=== PATIENT | female | born 2000 | race Caucasian/White ===

== ENCOUNTER 2024-04-08 17:45 | Emergency (ER) | payer SELFPAY ==
--- NOTE | 2024-04-08 18:14 | ED.PDOC.TRB ---
ED Provider Triage
-
Patient seen by provider in Triage?: Seen in Triage
*Seen in triage to expedite assessment*
23 yo female presents with dysuria, back pain and malaise x 1 week, R flank pain and urinary urgency beginning last night. Feels like she can't urinate. LMP began 03/15.
Urine dip done in PCP office and sent for urine culture, prescribed cephalexin and phenazopyridine, did not start yet. Dip reportedly positive for leuks and blood.
Visibly uncomfortable. VS unremarkable. Reporting R flank pain. Will obtain labs/HCG and send for CT to r/o stone.
[2024-04-08 18:16] VITALS: BP 126/84
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
[2024-04-08] MEDS: MOTRIN 600 MG PO (19:08)
== END 2024-04-08 20:07 | disposition home or self-care (01) ==
LOC: EMR 17:45
PROVIDERS: EMERGENCY PHYSICIAN Emergency Medicine; FAMILY PHYSICIAN Family Medicine
DX: S06.0XAA Concussion with loss of consciousness status unknown, initial encounter (principal); F41.0 Panic disorder [episodic paroxysmal anxiety]; V43.52XA Car driver injured in collision with other type car in traffic accident, initial encounter; Y92.410 Unspecified street and highway as the place of occurrence of the external cause; F42.9 Obsessive-compulsive disorder, unspecified
CPT/HCPCS: 99284; 70450

== ENCOUNTER 2024-04-12 11:33 | Emergency (ER) | payer BC, SELFPAY ==
[2024-04-12 11:39] VITALS: BP 131/95
[2024-04-12 12:38] LABS: Urine Albumin Negative (Neg - Trace); Urine Bilirubin Negative (Negative); Urine Character Clear (Clear); Urine Color Yellow; Urine Glucose Negative (Negative); Urine Ketone Negative (Negative); Urine Leukocyte Trace (Negative); Urine Nitrite Negative (Negative); Urine Occult Blood Negative (Negative); Urine Specific Gravity 1.005 (<1.030); Urine Urobilinogen Negative (Neg - 1+)
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
[2024-04-12 12:51] LABS: HCG, Urine Qualitative Screen Negative
[2024-04-12 12:54] LABS: Urine Squamous Cell 26-30 /LPF (Few)
[2024-04-12 12:56] LABS: Urine Red Blood Cell 0-2 /HPF (0-2)
== END 2024-04-12 14:29 | disposition home or self-care (01) ==
LOC: EMR 11:33
PROVIDERS: Emergency Medicine; EMERGENCY PHYSICIAN Emergency Medicine; FAMILY PHYSICIAN Family Medicine
DX: R33.9 Retention of urine, unspecified (principal); R10.2 Pelvic and perineal pain; S70.01XA Contusion of right hip, initial encounter; M54.9 Dorsalgia, unspecified; V43.92XA Unspecified car occupant injured in collision with other type car in traffic accident, initial encounter; Y92.410 Unspecified street and highway as the place of occurrence of the external cause; R03.0 Elevated blood-pressure reading, without diagnosis of hypertension; F41.9 Anxiety disorder, unspecified; K58.9 Irritable bowel syndrome, unspecified; N83.209 Unspecified ovarian cyst, unspecified side; F41.0 Panic disorder [episodic paroxysmal anxiety]; F90.9 Attention-deficit hyperactivity disorder, unspecified type; F42.9 Obsessive-compulsive disorder, unspecified; G43.909 Migraine, unspecified, not intractable, without status migrainosus; Z79.899 Other long term (current) drug therapy
CPT/HCPCS: 99283; 51798; 81003; 81015; 81025

== ENCOUNTER → 2024-06-24 06:13 | Day surgery (SDC) | payer BC, SELFPAY | LOC: GI 06:13 | PROVIDERS: ATTENDING PHYSICIAN Internal Medicine; FAMILY PHYSICIAN Family Medicine | DX: R10.30 Lower abdominal pain, unspecified (principal); R19.4 Change in bowel habit | CPT/HCPCS: 45380; 88305; 88341; 88342 ==

== ENCOUNTER → 2024-08-19 08:56 | Outpatient (REF) | payer BC, SELFPAY | LOC: HWRAD 08:56 | PROVIDERS: ATTENDING PHYSICIAN Obstetrics & Gynecology; FAMILY PHYSICIAN Family Medicine | DX: R10.2 Pelvic and perineal pain (principal); N80.9 Endometriosis, unspecified | CPT/HCPCS: 76830; 76856 ==

== ENCOUNTER 2024-09-28 06:11 | Day surgery (SDC) | payer BC, SELFPAY ==
[2024-09-24 10:39] VITALS: BMI 21.9
[2024-09-24 10:44] LABS: Hematocrit 35.6 % (37.0-47.0); Hemoglobin 12.1 g/dL (12.0-16.0); Mean Corpuscular Hgb 31.6 pg (27.0-31.0); Mean Platelet Volume 10.1 fL (7.4-10.4); Platelet Count 317 10^3/uL (130-400); Red Blood Cell Count 3.83 10^6/uL (4.20-5.40); Red Cell Dist. Width 11.9 % (11.5-14.5); White Blood Cell Count 5.2 10^3/uL (4.8-10.8)
[2024-09-24 11:19] LABS: Blood Urea Nitrogen 14 mg/dl (7-17); Calcium 9.3 mg/dl (8.4-10.2); Carbon Dioxide 25 mmol/L (22-30); Chloride 102 mmol/L (98-107); Estimated Creatinine Clearance 114 ml/min; Glucose 75 mg/dl (70-99); Potassium 4.1 mmol/L (3.5-5.1); Sodium 141 mmol/L (135-145); eGFR > 60.00
[2024-09-28] VITALS (9 sets, daily range): BP systolic 107–123; BP diastolic 62–84; BMI 21.9
[2024-09-28] MEDS: Pyridium 200 MG PO (06:35)
[2024-09-28] MEDS: EMEND 40 MG PO (07:01)
[2024-09-28] MEDS: DILAUDID 0.5 MG IV (09:21)
[2024-09-28] MEDS: DILAUDID 0.25 MG IV ×2 (09:39→10:07)
[2024-09-28] MEDS: MOTRIN 600 MG PO (10:38)
== END 2024-09-28 11:09 | disposition home or self-care (01) ==
LOC: SDS 06:11
PROVIDERS: ATTENDING PHYSICIAN Obstetrics & Gynecology; FAMILY PHYSICIAN Family Medicine
DX: N80.3C2 Endometriosis of the left uterosacral ligament, unspecified depth (principal); N80.351 Endometriosis of the right pelvic sidewall, unspecified depth; N83.12 Corpus luteum cyst of left ovary; R10.2 Pelvic and perineal pain; G89.29 Other chronic pain
CPT/HCPCS: 58662; 88304; 88305; 36415; 80048; 85027

== ENCOUNTER 2024-10-01 17:08 | Emergency (ER) | payer BC, SELFPAY ==
[2024-10-01 17:11] VITALS: BP 130/91
[2024-10-01 17:24] LABS: % Basophils 0.4 % (0-2); % Eosinophils 1.1 % (0-6); % Immature Granulocytes 0.3 % (0-0.5); % Lymphocytes 36.3 % (20.5-51.1); % Monocytes 4.7 % (1.7-9.3); % Neutrophils 57.2 % (42.2-75.2); Absolute Eosinophils 0.1 10^3/uL (0-0.7); Absolute Lymphocytes 2.8 10^3/uL (1.2-3.4); Absolute Monocytes 0.4 10^3/uL (0.1-0.6); Absolute Neutrophils 4.4 10^3/uL (1.4-6.5); Hematocrit 37.8 % (37.0-47.0); Hemoglobin 13.2 g/dL (12.0-16.0); Mean Corp Hgb Conc. 34.9 g/dL (33.0-37.0); Mean Corpuscular Hgb 31.1 pg (27.0-31.0); Mean Corpuscular Volume 89.2 fL (81.0-99.0); Mean Platelet Volume 9.2 fL (7.4-10.4); Nucleated Red Blood Cells % 0 %; Platelet Count 313 10^3/uL (130-400); Red Blood Cell Count 4.24 10^6/uL (4.20-5.40); Red Cell Dist. Width 11.8 % (11.5-14.5); White Blood Cell Count 7.6 10^3/uL (4.8-10.8)
[2024-10-01 17:34] LABS: HCG, Serum Qualitative Screen Negative
[2024-10-01 17:51] LABS: ALT (SGPT) 14 U/L (0-35); AST (SGOT) 20 U/L (14-36); Albumin 4.7 g/dl (3.5-5.0); Alkaline Phosphatase 52 U/L (38-126); Blood Urea Nitrogen 9 mg/dl (7-17); Calcium 9.4 mg/dl (8.4-10.2); Carbon Dioxide 28 mmol/L (22-30); Chloride 102 mmol/L (98-107); Glucose 99 mg/dl (70-99); Potassium 3.7 mmol/L (3.5-5.1); Sodium 143 mmol/L (135-145); Total Bilirubin 0.3 mg/dl (0.2-1.3); Total Protein 7.4 g/dl (6.3-8.2); eGFR > 60.00
--- NOTE | 2024-10-01 20:21 | ED.GENMED ---
Addendum entered and electronically signed by Arina Lin MD, Resident 10/02/24 17:13:
HPI for patient that was not entered (was evaluated on 10/01).
This is a 23 year old female patient with PMH of recent laparoscopy for endometriosis, ADHD, anxiety/depression who presents to the ED with concerns of generalized abdominal pain. She recently underwent laparatomy for endometriosis on 09/28 by
. She states that she started to have abdominal pain after her surgery that was continuous crampy/stabbing type of pain that is generalized but mostly focused in lower abdomen that is also associated with nausea. She has passed flatus
everyday since her surgery but had not passed any bowel movements. She tried taking Milk of Mag but that had not provided her with any relief. She denies any fever, vomiting, or shortness of breath. When the stomach pain had increased, she had
gotten in contact with her surgeon who advised her to come to the ER.
Original Note:
History of Present Illness
<Arina Lin MD, Resident - Last Filed: 10/01/24 22:44>
General
Chief Complaint: Post Operative Problem(s)
Source: patient and family
Time Seen by Provider: 10/01/24 19:45
History of Present Illness
History of Present Illness:
This is a 23 year old female patient with PMH of recent laparascopy for endometriosis, ADHD, anxiety/depression who pr
<Josh Irby DO - Last Filed: 10/02/24 00:45>
History of Present Illness
History of Present Illness:
This is a 23 year old female patient with PMH of recent laparascopy for endometriosis, ADHD, anxiety/depression who pr
Dr. Irby:
This is 23-year-old female presents with generalized abdominal discomfort. She states mostly in her lower abdomen. She recently had laparoscopy for endometriosis and since has not been able to have a bowel movement. Patient states that her
discomfort had been what she expected but today it seemed to get worse. She has been trying stool softeners at home. She called her surgeon who advised her to come for evaluation. To my evaluation she states she feels better and feels like she
just has to have a bowel movement. No vomiting. No melena or hematochezia. No fevers. No shortness of breath. No injury. Wounds have been intact. She does have history of the patient in the past.
Past History
<Arina Lin MD, Resident - Last Filed: 10/01/24 22:44>
Social History
Tobacco: Non-smoker
Alcohol: None
Drug: None
<Josh Irby, - Last Filed: 10/02/24 00:45>
Past History
ED Past Medical History: Other (Endometriosis, C. difficile, irritable bowel syndrome, ovarian cysts, OCD, anxiety, depression)
Phy Exam
<Arina Lin MD, Resident - Last Filed: 10/01/24 22:44>
General Physical Exam
General Presentation: mild distress
Cardiovascular Exam
Cardiovascular Exam: regular rate/rhythm and no murmur
Heart Sounds: normal
Pulmonary Exam
Pulmonary Exam: lungs clear, no respiratory distress and no crackles
Gastrointestinal Exam
Gastrointestinal Exam: soft, non distended, surgical scar (laparatomy incisions present without bleeding or discharge) and tender (lower abdominal tenderness)
Neurological Exam
Neurological Exam: oriented x3
Musculoskeletal Exam
Musculoskeletal Exam: no edema
Skin Exam
Skin Exam: warm/dry
Psychiatric Exam
Psychiatric Exam: normal mood/affect
<Josh Irby, - Last Filed: 10/02/24 00:45>
Physical Exam
Physical Exam:
CONSTITUTIONAL Patient alert and oriented to person, place and time. Well-appearing. Vital signs reviewed.
HEAD atraumatic, normocephalic.
EYES eyelids normal to inspection, Extraocular muscles intact, Conjunctiva normal, Sclera normal.
NECK normal range of motion, Trachea midline, no jugular venous distention.
RESPIRATORY CHEST No respiratory distress noted, Chest expansion equal
ABDOMEN abdomen nontender, Bowel sounds normal. No distention. Incisions and wounds are intact and appear well. No surrounding redness.
BACK normal inspection, no obvious deformities
UPPER EXTREMITY range of motion normal, Motor strength normal, no cyanosis, no edema.
LOWER EXTREMITY range of motion normal, Motor strength normal, no cyanosis, no edema.
NEURO Speech normal, No focal motor deficits, Mikal coma scale 15, Memory normal, Cranial Nerves intact to screening exam.
SKIN skin warm, dry, and normal in color.
Course
<Arina Cindy Lin MD, Resident - Last Filed: 10/01/24 22:44>
Orders/Labs/Results
Orders:
Orders
10/01/24 17:13
Test Result ONCE
10/01/24 17:18
Complete Blood Count/With Diff Urgent
Comprehensive Metabolic Panel Urgent
HCG, Serum Qualitative Screen Urgent
10/01/24 20:33
Ondansetron Injectable [Zofran] 4 mg IV NOW STA
10/01/24 20:34
Ketorolac [Toradol] 15 mg IV NOW STA
10/01/24 20:47
Iohexol [Omnipaque] See Protocol PO NOW STA
10/01/24 21:09
Abdomen Xray - 1 View [CR Abdomen - 1 View] Urgent
Comment:
Reason For Exam: nausea, abd pain, recent sugery
10/01/24 22:24
Magnesium Citrate [Citroma] 300 ml PO ONCE ONE
Abnormal Lab Results
10/01/24
17:18
MCH 31.1 H pg
(27.0-31.0)
10/01/24 17:18
10/01/24 17:18
Vital Signs
Initial and Last Documented VS:
Initial Vital Signs
Temp Pulse Resp BP Pulse Ox
98.5 F 110 16 130/91 99
10/01/24 17:11 10/01/24 17:11 10/01/24 17:11 10/01/24 17:11 10/01/24 17:11
Last Documented Vital Signs
Temp Pulse Resp BP Pulse Ox
98.5 F 86 16 106/81 98
10/01/24 17:11 10/01/24 22:38 10/01/24 22:38 10/01/24 22:38 10/01/24 22:38
<Josh Irby, DO - Last Filed: 10/02/24 00:45>
Orders/Labs/Results
Orders:
Orders
10/01/24 17:13
Test Result ONCE
10/01/24 17:18
Complete Blood Count/With Diff Urgent
Comprehensive Metabolic Panel Urgent
HCG, Serum Qualitative Screen Urgent
10/01/24 20:33
Ondansetron Injectable [Zofran] 4 mg IV NOW STA
10/01/24 20:34
Ketorolac [Toradol] 15 mg IV NOW STA
10/01/24 20:47
Iohexol [Omnipaque] See Protocol PO NOW STA
10/01/24 21:09
Abdomen Xray - 1 View [CR Abdomen - 1 View] Urgent
Comment:
Reason For Exam: nausea, abd pain, recent sugery
10/01/24 22:24
Magnesium Citrate [Citroma] 300 ml PO ONCE ONE
Abnormal Lab Results
10/01/24
17:18
MCH 31.1 H pg
(27.0-31.0)
10/01/24 17:18
10/01/24 17:18
Vital Signs
Initial and Last Documented VS:
Initial Vital Signs
Temp Pulse Resp BP Pulse Ox
98.5 F 110 16 130/91 99
10/01/24 17:11 10/01/24 17:11 10/01/24 17:11 10/01/24 17:11 10/01/24 17:11
Last Documented Vital Signs
Temp Pulse Resp BP Pulse Ox
98.5 F 86 16 106/81 98
10/01/24 17:11 10/01/24 22:38 10/01/24 22:38 10/01/24 22:38 10/01/24 22:38
<Arina Lin MD, Resident - Last Filed: 10/01/24 22:44>
MDM/Problems Addressed
Differential Diagnosis Includes:
Small bowel obstruction, bowel perforation, Bowel bleed, constipation
MDM/Problems Addressed:
CBC/CMP without significant findings. Due to absense of red flag symptoms such as absence of passing flatus, fever, chills, abdominal distenson, or low HB, abdominal xray was appropriate after discussion with patient. Abdominal xray showed small
volume widespread colonic stool. She was given magnesium citrate and toradol for pain. Patient is stable and will be discharged with instructions to take Miralax and follow up with Dr. Rich.
<Josh Irby DO - Last Filed: 10/02/24 00:45>
MDM/Problems Addressed
Differential Diagnosis Includes:
Small bowel obstruction, bowel perforation, Bowel bleed, constipation, intra-abdominal abscess, intra-abdominal hemorrhage
<Arina Lin MD, Resident - Last Filed: 10/01/24 22:44>
*Critical Care Note
Total Time (30-74mins, 75-104mins- exclusive of procedures): Not Applicable
<Josh Irby DO - Last Filed: 10/02/24 00:45>
*Radiology
Radiology exam reviewed: preliminary read by ED provider (No obstruction)
*Pulse Oximetry
Patient hypoxic: no
Data Reviewed
Source: patient and family
Further Testing Considered But Not Given:
Consider CT scan. However after shared decision making, decision to forego imaging. See below
<Josh Irby DO - Last Filed: 10/02/24 00:45>
Patient Management
Escalation/DeEscalation of care consider admission/obs:
Lengthy discussion with the patient. Her abdominal exam is relatively benign. She does have a mild diffuse tenderness but wounds are intact. She has no fever. She appears well. Her white count hemoglobin are normal. I do suspect she is
constipated. At this time we decided to forego CT imaging and try laxatives. Patient is okay with this. She will return however if any symptoms worsen or progressive. She also will return for any progressive symptoms like fever or vomiting. She
will follow-up with her surgeon.
ED Attending Note
<Arina Lin MD, Resident - Last Filed: 10/01/24 22:44>
-
Portions of this chart may have been created with voice recognition software.� Occasional wrong word or��sound alike� substitutions may have occurred due to the inherent limitations of voice recognition software.
<Josh Irby DO - Last Filed: 10/02/24 00:45>
ED Attending Note
Patient seen and examined by attending physician: Yes
I performed a history and physical exam of patient and discussed management with resident, I reviewed resident's note and agree with documented findings and plan of care.: Yes
Discharge Plan
Departure
Patient Disposition: Home (Routine Discharge)
Date of Disposition: 10/01/24
Time of Disposition: 22:19
Patient with high blood pressure during this ER visit?: No
Discharge Problem:
Constipation
Prescriptions:
No Action
multivitamin Tablet
1 tab PO DAILY
buspirone [BuSpar] 30 mg Tablet
30 mg PO DAILY
atomoxetine [Strattera] 60 mg Capsule
60 mg PO DAILY
lamotrigine 50 mg Tablet Extended Release 24hr
50 mg PO DAILY
vilazodone 20 mg Tablet
20 mg PO DAILY
mecobalamin (vitamin B12) [B12 Active] 1,000 mcg Tablet,Chewable
1,000 mcg PO DAILY
clonidine HCl 0.2 mg Tablet
0.2 mg PO PRN PRN (Reason: anxiety)
Referrals:
Leatha Israel CNM [Family Provider] -
Activity Restrictions/Additional Instructions:
If worsening symptoms such as fever, chills, worsening/persistent abdominal pain please return to the ER. Take Miralax (over the counter) twice a day for 5 days for constipation. Follow up with at your scheduled visit in 2 weeks. If
symptoms persist, please call 's office earlier.
Interventions
Interventions:
*Risk Screen - Suicide Last Done: 10/01/24 17:13
*Neglect/Abuse Screening Last Done: 10/01/24 17:13
*Nursing Disposition Last Done: 10/01/24 22:39
Discharge Date and Time
Discharge Date/Time: 10/01/24 22:48
Print Language: MONEGASQUE
[2024-10-01] MEDS: ZOFRAN 4 MG IV (20:40)
[2024-10-01] MEDS: TORADOL 15 MG IV (20:40)
[2024-10-01] MEDS: OMNIPAQUE 50 ML PO (21:00)
[2024-10-01] MEDS: CITROMA 300 ML PO (22:35)
[2024-10-01 22:38] VITALS: BP 106/81
== END 2024-10-01 22:48 | disposition home or self-care (01) ==
LOC: EMR 17:08
PROVIDERS: Student in an Organized Health Care Education/Training Program; EMERGENCY PHYSICIAN Emergency Medicine; FAMILY PHYSICIAN Advanced Practice Midwife
DX: K59.00 Constipation, unspecified (principal); K58.9 Irritable bowel syndrome, unspecified; Z87.42 Personal history of other diseases of the female genital tract; Z98.890 Other specified postprocedural states
CPT/HCPCS: 99284; 96374; 96375; 74018; 80053; 84703; 85025

== ENCOUNTER 2024-12-13 14:14 | Emergency (ER) | payer BC, SELFPAY ==
[2024-12-13 14:17] VITALS: BP 140/86
[2024-12-13 14:44] LABS: % Basophils 0.7 % (0-2); % Eosinophils 0.2 % (0-6); % Immature Granulocytes 0.4 % (0-0.5); % Lymphocytes 28.9 % (20.5-51.1); % Monocytes 6.7 % (1.7-9.3); % Neutrophils 63.1 % (42.2-75.2); Absolute Basophils 0.1 10^3/uL (0-0.2); Absolute Lymphocytes 2.6 10^3/uL (1.2-3.4); Absolute Monocytes 0.6 10^3/uL (0.1-0.6); Absolute Neutrophils 5.8 10^3/uL (1.4-6.5); Hematocrit 37.5 % (37.0-47.0); Hemoglobin 12.9 g/dL (12.0-16.0); Mean Corp Hgb Conc. 34.4 g/dL (33.0-37.0); Mean Corpuscular Volume 90.1 fL (81.0-99.0); Mean Platelet Volume 9.4 fL (7.4-10.4); Nucleated Red Blood Cells % 0 %; Platelet Count 327 10^3/uL (130-400); Red Blood Cell Count 4.16 10^6/uL (4.20-5.40); Red Cell Dist. Width 11.7 % (11.5-14.5); White Blood Cell Count 9.1 10^3/uL (4.8-10.8)
[2024-12-13 14:45] LABS: Urine Albumin Negative (Neg - Trace); Urine Bilirubin Negative (Negative); Urine Character Clear (Clear); Urine Glucose Negative (Negative); Urine Ketone Negative (Negative); Urine Leukocyte Negative (Negative); Urine Nitrite Negative (Negative); Urine Occult Blood Negative (Negative); Urine Specific Gravity 1.005 (<1.030); Urine Urobilinogen Negative (Neg - 1+)
[2024-12-13 14:46] LABS: Urine Color Straw
[2024-12-13 15:12] LABS: HCG, Serum Qualitative Screen Negative
[2024-12-13 15:16] LABS: ALT (SGPT) 10 U/L (0-35); AST (SGOT) 21 U/L (14-36); Albumin 4.9 g/dl (3.5-5.0); Alkaline Phosphatase 92 U/L (38-126); Blood Urea Nitrogen 9 mg/dl (7-17); Calcium 9.5 mg/dl (8.4-10.2); Carbon Dioxide 21 mmol/L (22-30); Chloride 103 mmol/L (98-107); Glucose 85 mg/dl (70-99); Lipase 102 U/L (23-300); Potassium 3.8 mmol/L (3.5-5.1); Sodium 136 mmol/L (135-145); Total Bilirubin 0.7 mg/dl (0.2-1.3); Total Protein 7.2 g/dl (6.3-8.2); eGFR > 60.00
--- NOTE | 2024-12-13 16:23 | ED.GENMED ---
History of Present Illness
General
Chief Complaint: Abdominal Pain
Source: patient
Exam Limitations: none
Time Seen by Provider: 12/13/24 15:32
Nursing documentation reviewed up to this point in time: agreed with
History of Present Illness
History of Present Illness:
Patient recently diagnosed with endometriosis, status post progestin based IUD placement 2 weeks ago, presents to ED secondary to sudden onset of worsening lower abdominal pain with loss of sensation, and approximate 2 hours prior to arrival.
Denies trauma. Denies vaginal bleeding. Patient states that after insertion of IUD, patient has had very mild lower abdominal cramping sensation. Denies fever or chills. Denies previous history of similar symptoms. However, intensity of pain
does remind the patient of when she had ruptured ovarian cyst.
Past History
Past History
ED Past Medical History: Other (Endometriosis, C. difficile, irritable bowel syndrome, ovarian cysts, OCD, anxiety, depression)
Social History
Tobacco: Non-smoker
Alcohol: None
Drug: None
Review of Systems
Review of Systems
Allergies reviewed?: Yes
All Other Systems: ROS reviewed and negative except as documented in HPI and ROS
Constitutional: Reports no symptoms
Respiratory: Reports no symptoms
Cardiac: Reports no symptoms
ABD/GI: Reports abdominal pain and nausea; Denies vomiting
: Reports no symptoms; Denies bleeding
Musculoskeletal: Reports no symptoms
Skin: Reports no symptoms
Neurological: Reports no symptoms
Phy Exam
Physical Exam
Physical Exam:
Physical Exam
General: mild painful distress, not acutely ill. afebrile
Head: nc/at. eomi
Neck: supple. normal range of motion
Abdomen: normal bowel sounds. not tender.
Pelvic: BEBO Nguyen, at bedside: minimal brown discharge noted. no adnexal tenderness to palpation.
Neuro: alert and oriented x 3. no focal neurological deficits
Skin: no rash
Psychiatric: well kept. interactive and cooperative
Extremities: no edema. no calf tenderness.
Course
Orders/Labs/Results
Orders:
Orders
12/13/24 14:22
Test Result ONCE
12/13/24 14:30
Complete Blood Count/With Diff Urgent
Comprehensive Metabolic Panel Urgent
HCG, Serum Qualitative Screen Urgent
Lipase Urgent
12/13/24 14:34
Urinalysis Reflex To Culture Urgent
Date Specimen was Collected: 12/13/24
Time Specimen was Collected: 14:22
12/13/24 15:50
0.9% Sodium Chloride 500 ml [Nss] 500 ml IV BOLUS
Ketorolac [Toradol] 15 mg IV NOW STA
Ondansetron Injectable [Zofran] 4 mg IV NOW STA
US Pelvis W Transvag Combined Urgent
Comment:
Reason For Exam: pelvic pain w hx endometriosis
Abnormal Lab Results
12/13/24
14:30
RBC 4.16 L 10^6/uL
(4.20-5.40)
Carbon Dioxide 21 L mmol/L
(22-30)
Creatinine 0.5 L mg/dL
(0.6-1.0)
12/13/24 14:30
12/13/24 14:30
Vital Signs
Initial and Last Documented VS:
Initial Vital Signs
Temp Pulse Resp BP Pulse Ox
98.6 F 120 16 140/86 100
12/13/24 14:17 12/13/24 14:17 12/13/24 14:17 12/13/24 14:17 12/13/24 14:17
Last Documented Vital Signs
Temp Pulse Resp BP Pulse Ox
98.6 F 109 16 140/86 97
12/13/24 14:17 12/13/24 18:40 12/13/24 18:40 12/13/24 14:17 12/13/24 18:40
MDM/Problems Addressed
MDM/Problems Addressed:
Patient with an unremarkable workup in ED, including blood work and pelvic ultrasound, along with unremarkable pelvic exam.
Discussed with on-call PROCESSING ASSOCIATE physician, , who agrees with plan to discharge patient home for an urgent outpatient follow-up in the office. Patient and family agree with treatment plan. Advised NSAID as an outpatient, as needed, along with
recommendation to consider return to ED with fever/worsening pain/vomiting
*Critical Care Note
Total Time (30-74mins, 75-104mins- exclusive of procedures): Not Applicable
ED Attending Note
-
Portions of this chart may have been created with voice recognition software.� Occasional wrong word or��sound alike� substitutions may have occurred due to the inherent limitations of voice recognition software.
Discharge Plan
Departure
Patient Disposition: Home (Routine Discharge)
Date of Disposition: 12/13/24
Time of Disposition: 19:41
Patient with high blood pressure during this ER visit?: No
Discharge Problem:
Pelvic pain
Instructions: Pelvic Pain ED
Prescriptions:
No Action
multivitamin Tablet
1 tab PO DAILY
buspirone [BuSpar] 30 mg Tablet
30 mg PO DAILY
atomoxetine [Strattera] 60 mg Capsule
60 mg PO DAILY
lamotrigine 50 mg Tablet Extended Release 24hr
50 mg PO DAILY
vilazodone 20 mg Tablet
20 mg PO DAILY
mecobalamin (vitamin B12) [B12 Active] 1,000 mcg Tablet,Chewable
1,000 mcg PO DAILY
clonidine HCl 0.2 mg Tablet
0.2 mg PO PRN PRN (Reason: anxiety)
Referrals:
Corinne Padgett DO [Active] -
Macie Mcmahan DO [Family Provider] -
Activity Restrictions/Additional Instructions:
As discussed, please follow-up with your PROCESSING ASSOCIATE physician for further evaluation and treatment. Please return to ED with worsening symptoms, i.e. fever/worsening pain/vomiting.
Interventions
Interventions:
*Risk Screen - Suicide Last Done: 12/13/24 14:17
*General Assessment Last Done: 12/13/24 17:20
*Neglect/Abuse Screening Last Done: 12/13/24 14:17
ED- Fall Risk Assessment Last Done: 12/13/24 17:20
*ED COVID-19 Vaccine History Last Done: 12/13/24 17:20
*Nursing Disposition Last Done: 12/13/24 20:04
ZS-Rndzmi-Oqusctjvxg Assessment Last Done: 12/13/24 17:20
Discharge Date and Time
Discharge Date/Time: 12/13/24 20:05
Print Language: FAROESE
[2024-12-13] MEDS: TORADOL 15 MG IV (17:10)
[2024-12-13] MEDS: ZOFRAN 4 MG IV (17:10)
[2024-12-13] MEDS: NSS 500 IV (17:10)
== END 2024-12-13 20:05 | disposition home or self-care (01) ==
LOC: EMR 14:14
PROVIDERS: Student in an Organized Health Care Education/Training Program; EMERGENCY PHYSICIAN Emergency Medicine; FAMILY PHYSICIAN Family Medicine
DX: R10.2 Pelvic and perineal pain (principal); K58.9 Irritable bowel syndrome, unspecified; Z97.5 Presence of (intrauterine) contraceptive device; Z87.42 Personal history of other diseases of the female genital tract
CPT/HCPCS: 96374; 96375; 96361; 99284; 76830; 76856; 80053; 81003; 83690; 84703; 85025

== ENCOUNTER 2024-12-15 13:19 | Emergency (ER) | payer BC, SELFPAY ==
[2024-12-15] VITALS (7 sets, daily range): BP systolic 117–133; BP diastolic 76–94; BMI 21.9
[2024-12-15 13:42] LABS: % Basophils 0.5 % (0-2); % Eosinophils 0.2 % (0-6); % Immature Granulocytes 0.4 % (0-0.5); % Lymphocytes 18.8 % (20.5-51.1); % Monocytes 5.6 % (1.7-9.3); % Neutrophils 74.5 % (42.2-75.2); Absolute Basophils 0.1 10^3/uL (0-0.2); Absolute Lymphocytes 1.7 10^3/uL (1.2-3.4); Absolute Monocytes 0.5 10^3/uL (0.1-0.6); Absolute Neutrophils 6.8 10^3/uL (1.4-6.5); Hematocrit 38.7 % (37.0-47.0); Hemoglobin 13.1 g/dL (12.0-16.0); Mean Corp Hgb Conc. 33.9 g/dL (33.0-37.0); Mean Corpuscular Hgb 30.5 pg (27.0-31.0); Mean Corpuscular Volume 90.2 fL (81.0-99.0); Nucleated Red Blood Cells % 0 %; Platelet Count 301 10^3/uL (130-400); Red Blood Cell Count 4.29 10^6/uL (4.20-5.40); Red Cell Dist. Width 11.8 % (11.5-14.5); White Blood Cell Count 9.2 10^3/uL (4.8-10.8)
[2024-12-15 13:43] LABS: Urine Albumin Negative (Neg - Trace); Urine Bilirubin Negative (Negative); Urine Character Clear (Clear); Urine Color Yellow; Urine Glucose Negative (Negative); Urine Ketone Negative (Negative); Urine Leukocyte Negative (Negative); Urine Nitrite Negative (Negative); Urine Occult Blood Negative (Negative); Urine Urobilinogen Negative (Neg - 1+)
[2024-12-15 13:52] LABS: HCG, Serum Qualitative Screen Negative
[2024-12-15 13:54] LABS: ALT (SGPT) 11 U/L (0-35); AST (SGOT) 21 U/L (14-36); Albumin 4.5 g/dl (3.5-5.0); Alkaline Phosphatase 61 U/L (38-126); Blood Urea Nitrogen 9 mg/dl (7-17); Calcium 9.4 mg/dl (8.4-10.2); Carbon Dioxide 24 mmol/L (22-30); Chloride 105 mmol/L (98-107); Glucose 99 mg/dl (70-99); Potassium 4.2 mmol/L (3.5-5.1); Sodium 137 mmol/L (135-145); Total Bilirubin 0.5 mg/dl (0.2-1.3); Total Protein 6.9 g/dl (6.3-8.2); eGFR > 60.00
--- NOTE | 2024-12-15 15:18 | ED.GENMED ---
History of Present Illness
General
Chief Complaint: Abdominal Pain
Source: patient
Time Seen by Provider: 12/15/24 14:59
History of Present Illness
History of Present Illness:
23-year-old female presents to the emergency room complaining of lower abdominal pain. Patient began having abdominal pain 3 days ago. She was seen in the emergency room and had an ultrasound at that time. Ultrasound showed a ovarian cyst which
was thought to be the source of the pain. The patient followed up with her dog license officer supervisor today. Home Office Representative was concerned the cyst might be too small to explain the patient's symptoms. She has been continuing to have abdominal pain since she left
the emergency room. She is taken ibuprofen and Midol without much improvement. Patient has not had a fever. She feels nauseous when the pain worsens. The pain waxes and wanes in intensity. Patient has had abdominal surgery for a ruptured
hemorrhagic ovarian cyst as well as having surgery for ovarian torsion. Patient has a history of endometriosis and has had surgery for this as well. She does not believe this pain is similar today endometriosis pain.
Past History
Past History
ED Past Medical History: Other (Endometriosis, C. difficile, irritable bowel syndrome, ovarian cysts, OCD, anxiety, depression)
Social History
Tobacco: Non-smoker
Alcohol: None
Drug: None
Phy Exam
Physical Exam
Physical Exam:
General: Awake, Alert, Oriented X3. No acute distress.
Vitals: unremarkable
Head: Atraumatic
Eyes: Pupils equal, EOMI
Throat: Airway intact, no exudates
Neck: Trachea midline
Lungs: Clear and equal b/l
Heart: Regular rate, no murmurs
Abd: Soft, tender to palpation bilateral lower quadrants but much worse on the right, No pulsatile mass
Neuro: Nonfocal
Skin: Warm, dry, no rash
Extremities: pulses equal b/l, no edema
Course
Orders/Labs/Results
Orders:
Orders
12/15/24 13:29
Test Result ONCE
12/15/24 13:31
Complete Blood Count/With Diff Urgent
Comprehensive Metabolic Panel Urgent
HCG, Serum Qualitative Screen Urgent
Urinalysis Reflex To Culture Urgent
Date Specimen was Collected: 12/15/24
Time Specimen was Collected: 13:28
12/15/24 15:16
0.9% Sodium Chloride 1000 ml [Nss] 1,000 ml IV BOLUS
Iohexol [Omnipaque] See Protocol PO NOW STA
Ketorolac [Toradol] 15 mg IV NOW STA
12/15/24 15:17
CT Abd/pel W Iv And Oral Contr Urgent
Comment:
Reason For Exam: rlq abd pain
12/15/24 16:34
HYDROmorphone [Dilaudid] 0.5 mg IV NOW STA
Ondansetron Injectable [Zofran] 4 mg IV NOW STA
Abnormal Lab Results
12/15/24
13:31
Absolute Neuts (auto) 6.8 H 10^3/uL
(1.4-6.5)
Lymphocytes % 18.8 L %
(20.5-51.1)
12/15/24 13:31
12/15/24 13:31
Vital Signs
Initial and Last Documented VS:
Initial Vital Signs
Temp Pulse Resp BP Pulse Ox
98.4 F 125 22 117/82 100
12/15/24 13:24 12/15/24 13:24 12/15/24 13:24 12/15/24 13:24 12/15/24 13:24
Last Documented Vital Signs
Temp Pulse Resp BP Pulse Ox
98.4 F 101 20 124/78 97
12/15/24 13:24 12/15/24 19:50 12/15/24 19:50 12/15/24 19:06 12/15/24 19:50
MDM/Problems Addressed
Differential Diagnosis Includes:
Appendicitis, ruptured ovarian cyst, mesenteric adenitis
MDM/Problems Addressed:
CT here confirms the presence of a right ovarian cyst. There is no other acute abnormalities noted. Labs are all normal. Patient exam is positive for some right lower quadrant pain but no rebound or signs of a surgical abdomen. Patient stable
for discharge home and continued outpatient follow-up.
*Radiology
Radiology exam reviewed: radiology read reviewed
*Pulse Oximetry
Patient hypoxic: no
*Critical Care Note
Total Time (30-74mins, 75-104mins- exclusive of procedures): Not Applicable
ED Attending Note
-
Portions of this chart may have been created with voice recognition software.� Occasional wrong word or��sound alike� substitutions may have occurred due to the inherent limitations of voice recognition software.
Discharge Plan
Departure
Patient Disposition: Home (Routine Discharge)
Date of Disposition: 12/15/24
Time of Disposition: 19:19
Patient with high blood pressure during this ER visit?: No
Condition: Good
Discharge Problem:
Pelvic pain, Ovarian cyst
Instructions: Pelvic Pain ED
Prescriptions:
New
hydrocodone-acetaminophen 5-325 mg tablet
1 tab PO Q6H PRN (Reason: severe pain) Qty: 5 0RF
No Action
multivitamin Tablet
1 tab PO DAILY
buspirone [BuSpar] 30 mg Tablet
30 mg PO DAILY
atomoxetine [Strattera] 60 mg Capsule
60 mg PO DAILY
lamotrigine 50 mg Tablet Extended Release 24hr
50 mg PO DAILY
vilazodone 20 mg Tablet
20 mg PO DAILY
mecobalamin (vitamin B12) [B12 Active] 1,000 mcg Tablet,Chewable
1,000 mcg PO DAILY
clonidine HCl 0.2 mg Tablet
0.2 mg PO PRN PRN (Reason: anxiety)
Referrals:
Corinne Padgett DO [Active] -
Macie Mcmahan DO [Family Provider] -
Interventions
Interventions:
*Risk Screen - Suicide Last Done: 12/15/24 13:24
*General Assessment Last Done: 12/15/24 13:24
*Neglect/Abuse Screening Last Done: 12/15/24 13:24
*ED COVID-19 Vaccine History Last Done: 12/15/24 16:14
*Nursing Disposition Last Done: 12/15/24 19:50
OU-Nvnzsz-Xcvmrjxtsu Assessment Last Done: 12/15/24 16:15
Discharge Date and Time
Discharge Date/Time: 12/15/24 19:52
Print Language: TOGOLESE
[2024-12-15] MEDS: TORADOL 15 MG IV (15:59)
[2024-12-15] MEDS: NSS 1000 IV (15:59)
[2024-12-15] MEDS: OMNIPAQUE 50 ML PO (16:06)
[2024-12-15] MEDS: DILAUDID 0.5 MG IV (16:39)
[2024-12-15] MEDS: ZOFRAN 4 MG IV (16:39)
== END 2024-12-15 19:52 | disposition home or self-care (01) ==
LOC: EMR 13:19
PROVIDERS: Student in an Organized Health Care Education/Training Program; EMERGENCY PHYSICIAN Emergency Medicine; FAMILY PHYSICIAN Family Medicine
DX: R10.2 Pelvic and perineal pain (principal); N83.209 Unspecified ovarian cyst, unspecified side; K58.9 Irritable bowel syndrome, unspecified; F42.9 Obsessive-compulsive disorder, unspecified; F41.8 Other specified anxiety disorders
CPT/HCPCS: 99284; 96374; 96375; 74177; 80053; 81003; 84703; 85025; Q9967

== ENCOUNTER 2024-12-20 23:58 | Observation (INO) | payer BC, SELFPAY ==
[2024-12-20] VITALS (7 sets, daily range): BP systolic 116–134; BP diastolic 65–90; BMI 25.4
--- NOTE | 2024-12-20 16:29 | EDRN ---
Dr. Perez in room w/pt at this time.
--- NOTE | 2024-12-20 17:00 | ED.GENMED ---
History of Present Illness
General
Chief Complaint: Abdominal Symptoms
Source: patient and family
Exam Limitations: none
Time Seen by Provider: 12/20/24 16:25
History of Present Illness
History of Present Illness:
23-year-old female returns with ongoing abdominal pain. Feels slightly bloated. Pain is more right lower quadrant. Nausea and vomiting when pain is at its worst. Some radiation to the back. Recent ER visit with a 3 cm cyst but no signs of
torsion or rupture. Also had a CT scan done that was unremarkable. Discussed with her SERVICE ASSOCIATE who has an appointment 2 days from now. She has had some clotting and vaginal bleeding in addition.
Past History
Past History
ED Past Medical History: Other (Endometriosis, C. difficile, irritable bowel syndrome, ovarian cysts, OCD, anxiety, depression)
ED Past Surgical History: Gynecological and Other (Endometrial surgery)
Social History
Tobacco: Non-smoker
Alcohol: None
Drug: None
Review of Systems
Review of Systems
All Other Systems: Not applicable
Constitutional: Denies fever or chills
Respiratory: Reports no symptoms
Phy Exam
Physical Exam
Physical Exam:
GENERAL: Alert and oriented in no apparent distress
EYE: Orbits normal.
NECK: Supple
CARDIAC: Regular rate and rhythm without any obvious murmurs.
LUNGS: Clear breath sounds,normal
ABDOMEN: Soft, decreased bowel sounds but present. No distention. 1 cm scar right lower quadrant. Mild to moderate reproducible tenderness right lower quadrant. No referred pain. No rebound or guarding no mass or hernia
NEUROLOGICAL: Alert and oriented , grossly non-focal
SKIN: Warm and dry, no rash or lesion, no discoloration, skin intact.
MUSCULOSKELETAL: No edema,no deformity.Good color
PSYCH: Normal and appropriate interaction.
Course
Orders/Labs/Results
Orders:
Orders
12/20/24 16:38
IV Insert/Care/Rem.- Treatment PRN
0.9% Sodium Chloride 1000 ml [Nss] 1,000 ml IV BOLUS
Ketorolac [Toradol] 15 mg IV NOW STA
Ondansetron Injectable [Zofran] 4 mg IV NOW STA
12/20/24 16:39
Test Result ONCE
US Abdomen - Appendix Only Urgent
Comment:
Reason For Exam: Right lower quadrant pain
US Pelvis Only (non-obstetric) Urgent
Comment:
Reason For Exam: pelvic pain. Evaluate for torsion/cyst rupture
12/20/24 17:38
Complete Blood Count/With Diff Urgent
Comprehensive Metabolic Panel Urgent
HCG, Serum Qualitative Screen Urgent
Lipase Urgent
12/20/24 19:29
Urinalysis Reflex To Culture Urgent
Date Specimen was Collected: 12/20/24
Time Specimen was Collected: 18:56
Urine Microscopic Reflex Cult Urgent
12/20/24 19:48
Acetaminophen 1000MG/100Ml [Ofirmev] 1,000 mg in 100 ml IV ONCE
Acetaminophen IV Indication:: ED Narcotic Naive Pt-ONCE
12/20/24 23:52
HYDROmorphone [Dilaudid] 2 mg PO NOW STA
12/20/24 23:56
Admit/Transfer Patient As Directed
Co-Sign Provider:
Level of Care: Observation services
Assign to:: Medical/Surgical
Physician / Group: [facility]
Transfer to: Medical/Surgical
Diagnosis: RLQ pain
Patient Condition: Good
PRN Pain Medication Management As Directed
May give lesser potent ordered pain med per pt: Yes
preference::
Protocol:: Medication orders for pain may be administered in a
manner that supports deferring to patient preference
when the pt is:
- Requesting an ordered lesser potent pain medication.
Least to most potent pain medications are defined
as: acetaminophen < NSAID < tramadol < opioids
(morphine, oxycodone, hydromorphone).
- Requesting a lesser dose of the same medication IF
ORDERED.
- Requesting a less intrusive route of administration
if both routes are prescribed by the provider (PO <
IV).
12/21/24 00:48
Clonidine [Catapres] 0.2 mg PO PRN PRN
12/21/24 08:00
Buspirone [Buspar] 30 mg PO DAILY
atomoxetine [Strattera] See Dose Instructions PO DAILY
plecanatide [Trulance] See Dose Instructions PO DAILY
vilazodone See Dose Instructions PO DAILY
12/21/24 09:00
Lamotrigine [Lamictal] 50 mg PO DAILY
Abnormal Lab Results
12/20/24 12/20/24
17:38 19:29
Abs Immat Gran (auto) 0.1 H 10^3/uL
(0-0.05)
Absolute Neuts (auto) 6.8 H 10^3/uL
(1.4-6.5)
Immature Gran % 0.6 H %
(0-0.5)
Ur Occult Blood Reflex 2+ A
(Negative)
Urine Bacteria (Reflex) Few A
(Negative)
Urine Albumin (Reflex) 1+ A
(Neg - Trace)
12/20/24 17:38
12/20/24 17:38
Vital Signs
Initial and Last Documented VS:
Initial Vital Signs
Temp Pulse Resp BP Pulse Ox
97.9 F 109 18 134/89 100
12/20/24 15:31 12/20/24 15:31 12/20/24 15:31 12/20/24 15:31 12/20/24 15:31
Last Documented Vital Signs
Temp Pulse Resp BP Pulse Ox
97.7 F 99 20 119/83 97
12/21/24 16:33 12/21/24 16:33 12/21/24 16:33 12/21/24 16:33 12/21/24 09:18
MDM/Problems Addressed
Differential Diagnosis Includes:
More suspicious of a SERVICE ASSOCIATE issue. Clinically stable. Would like to avoid repeat CT if at all reasonably possible. She just had one 5 days ago that was unremarkable. Will repeat ultrasound also do ultrasound of appendix.
*Radiology
Radiology exam reviewed: radiology read reviewed (3 cm right ovarian cyst. Appendix not visualized. Good flow.)
*Pulse Oximetry
Patient hypoxic: no
*Critical Care Note
Total Time (30-74mins, 75-104mins- exclusive of procedures): Not Applicable
Data Reviewed
Review of Other/Old Records Reveals: Labs, Records, Radiology Studies and Testing
Update Note
Update Note:
Patient remains clinically stable and nontoxic. Labs are normal. Nonvisualized appendix. Normal white count. No fever. 3 cm cyst. Good flow. Do not feel this is a GI issue. Likely SERVICE ASSOCIATE source although not clearly related to the cyst. Highly
doubt torsion. No sign of a ruptured cyst. Has remained clinically stable. 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
ED Attending Note
-
Portions of this chart may have been created with voice recognition software.� Occasional wrong word or��sound alike� substitutions may have occurred due to the inherent limitations of voice recognition software.
Discharge Plan
Departure
Patient Disposition: Admit
Date of Disposition: 12/20/24
Time of Disposition: 23:53
Presentation/result/management discussed w/ accepting MD/DO: Gynecology
Patient with high blood pressure during this ER visit?: No
Condition: Fair
Discharge Problem:
Intractable abdominal pain
Interventions
Interventions:
*Risk Screen - Suicide Last Done: 12/20/24 17:47
*General Assessment Last Done: 12/20/24 17:47
*Neglect/Abuse Screening Last Done: 12/20/24 17:47
ED- Fall Risk Assessment Last Done: 12/20/24 19:42
*ED COVID-19 Vaccine History Last Done: 12/20/24 17:47
*Nursing Disposition Last Done: 12/21/24 09:19
VX-Jfxgxt-Omsefwshco Assessment Last Done: 12/20/24 19:42
Discharge Date and Time
Discharge Date/Time: 12/21/24 09:19
[2024-12-20] MEDS: TORADOL 15 MG IV (17:42)
[2024-12-20] MEDS: NSS 1000 IV (17:42)
[2024-12-20] MEDS: ZOFRAN 4 MG IV (17:43)
[2024-12-20 17:46] LABS: % Basophils 0.8 % (0-2); % Eosinophils 0.3 % (0-6); % Immature Granulocytes 0.6 % (0-0.5); % Lymphocytes 28.2 % (20.5-51.1); % Monocytes 4.9 % (1.7-9.3); % Neutrophils 65.2 % (42.2-75.2); Absolute Basophils 0.1 10^3/uL (0-0.2); Absolute Immature Granulocytes 0.1 10^3/uL (0-0.05); Absolute Lymphocytes 2.9 10^3/uL (1.2-3.4); Absolute Monocytes 0.5 10^3/uL (0.1-0.6); Absolute Neutrophils 6.8 10^3/uL (1.4-6.5); Hematocrit 43.1 % (37.0-47.0); Hemoglobin 14.9 g/dL (12.0-16.0); Mean Corp Hgb Conc. 34.6 g/dL (33.0-37.0); Mean Corpuscular Hgb 30.7 pg (27.0-31.0); Mean Corpuscular Volume 88.7 fL (81.0-99.0); Mean Platelet Volume 9.1 fL (7.4-10.4); Nucleated Red Blood Cells % 0 %; Platelet Count 312 10^3/uL (130-400); Red Blood Cell Count 4.86 10^6/uL (4.20-5.40); Red Cell Dist. Width 11.8 % (11.5-14.5); White Blood Cell Count 10.4 10^3/uL (4.8-10.8)
[2024-12-20 18:00] LABS: ALT (SGPT) 12 U/L (0-35); AST (SGOT) 23 U/L (14-36); Alkaline Phosphatase 76 U/L (38-126); Blood Urea Nitrogen 10 mg/dl (7-17); Carbon Dioxide 24 mmol/L (22-30); Chloride 103 mmol/L (98-107); Estimated Creatinine Clearance 123 ml/min; Glucose 88 mg/dl (70-99); Lipase 90 U/L (23-300); Potassium 4.2 mmol/L (3.5-5.1); Sodium 139 mmol/L (135-145); Total Bilirubin 0.5 mg/dl (0.2-1.3); Total Protein 7.8 g/dl (6.3-8.2); eGFR > 60.00
[2024-12-20 18:05] LABS: HCG, Serum Qualitative Screen Negative
--- NOTE | 2024-12-20 18:12 | EDRN ---
Pt noted menses started 45 minutes ago when had a BM.
--- NOTE | 2024-12-20 18:16 | EDRN ---
Pt given urine spec cup w/ instructions to get urine spec post US.
[2024-12-20 19:58] LABS: Urine Albumin 1+ (Neg - Trace); Urine Bilirubin Negative (Negative); Urine Character Clear (Clear); Urine Color Yellow; Urine Glucose Negative (Negative); Urine Ketone Negative (Negative); Urine Leukocyte Negative (Negative); Urine Nitrite Negative (Negative); Urine Occult Blood 2+ (Negative); Urine Specific Gravity 1.005 (<1.030); Urine Urobilinogen Negative (Neg - 1+)
[2024-12-20] MEDS: OFIRMEV 100 IV (19:59)
[2024-12-20 20:24] LABS: Urine Bacteria Few (Negative); Urine Red Blood Cell 0-2 /HPF (0-2); Urine Squamous Cell 0-2 /LPF (Few); Urine White Cell 0-2 /HPF (0-5)
[2024-12-20] MEDS: DILAUDID 2 MG PO (23:59)
[2024-12-21] VITALS: BP 106/70
[2024-12-21 07:50] VITALS: BP 121/93
[2024-12-21] MEDS: TORADOL 15 MG IV ×2 (08:29→16:24)
[2024-12-21] MEDS: ZOFRAN 4 MG IV ×2 (08:29→16:24)
[2024-12-21 09:18] VITALS: BP 121/83
--- NOTE | 2024-12-21 09:42 | PTCARENOTE ---
PT. admitted to room 224 via stretcher from ED with her mother. Awake and alert. Has 20g HL in left AC. Area is clean and dry.Pain scale now 6. Has stabbing type pain that comes and goes in right lower abdomen to low back. Oriented to room. Pt aware
of consult with Dr. Mendoza and to remain NPO. PT. and her family aware to use call [facility] for all needs
[2024-12-21] MEDS: PRISTIQ 50 MG PO (10:13)
[2024-12-21] MEDS: BUSPAR 30 MG PO (10:13)
[2024-12-21 10:24] VITALS: BMI 22.1
[2024-12-21] MEDS: LAMICTAL 50 MG PO (10:41)
--- NOTE | 2024-12-21 10:41 | CM ---
Met with pt and her mother at bedside
Pt reports she lives with her parents and brother at listed address
Independent at baseline, FT student, drives
DME - none
HH - no past hx
Has ride at discharge
PCP - Macie Mcmahan
Pharm - [facility]
Given OBS letter
Plan - anticipate home no needs
[2024-12-21] MEDS: TYLENOL 1000 MG PO (10:45)
[2024-12-21] MEDS: DILAUDID 2 MG PO (13:30)
[2024-12-21 14:29] VITALS: BP 124/76
--- NOTE | 2024-12-21 14:59 | CONS.URO ---
Consultation
-
Requesting Provider: Dr. Katherine Russo
Performing Provider: Dr. Stewart Rich
Reason for Consultation: ovarian cyst and pain
Medical History
History of Present Illness
23-year-old woman with history of endometriosis and irritable bowel syndrome and chronic constipation presents to the emergency room with worsening lower pelvic and abdominal pain. Of note the patient has a longstanding history of endometriosis and
previously had surgery for a diagnostic laparoscopy which included excision of endometriosis in September 2024. Following that episode of surgery she developed severe constipation and went to the emergency room and was treated with laxatives in
order to resume normal bowel movements. The patient then followed up with her supervisor stone Dr. Padgett and had an IUD placed in the office in November 2024. Since that time the patient notes that her periods have been much caseworker intake with spotting and
no large blood clots. For the past week and a half she has developed worsening right lower quadrant pain that is intermittent in nature. She states that her pain becomes very sharp and severe which causes nausea and occasional vomiting. Patient
states that she is unable to go to school or complete her daily tasks due to this pain. She went to her supervisor stone into the emergency room which demonstrated a 3 cm ovarian cyst on prior pelvic ultrasound and CT scan of the abdomen pelvis. The
patient does have a history of ovarian cysts and did require a cystectomy previously. During her laparoscopy in September 2024 she had a cystectomy of her left ovary. Her right ovary was unremarkable at that time. In the emergency room on the
evening of December 20 2024 she had normal blood work and stable vital signs. There was no leukocytosis present. She had an ultrasound of her abdomen and pelvis. Appendix was not visualized. Her pelvic ultrasound demonstrated a 3 cm simple
ovarian cyst on her right ovary with normal flow on Dopplers. The patient had been to her supervisor stone earlier in the week right also sent her to the emergency room for worsening pain. Thus far she has tried ibuprofen to help with her pain which
patient states she is 'taking [id number]' which only moderately improved her pain. She is trying Impax without relief. The patient states that her nausea vomiting has improved since receiving pain medication in the emergency room. She
states that activity makes her pain much worse.
Allergies/Home Medications
Allergies
Allergy/AdvReac Type Severity Reaction Status Date / Time
Penicillins Allergy Hives Verified 12/15/24 13:28
Home Medications
�Medication �Instructions �Recorded �Confirmed �Type
atomoxetine 60 mg capsule 60 mg PO DAILY 09/22/24 12/20/24 History
(Strattera)
buspirone 30 mg tablet 30 mg PO DAILY 09/22/24 12/20/24 History
clonidine HCl 0.2 mg tablet 0.2 mg PO BIDPRN PRN anxiety 09/22/24 12/21/24 History
mecobalamin (vitamin B12) 1,000 1,000 mcg PO DAILY 09/22/24 12/20/24 History
mcg chewable tablet (B12 Active)
multivitamin 1 tab PO DAILY 09/22/24 12/20/24 History
ondansetron 4 mg disintegrating 4 mg PO TID PRN nausea 12/20/24 12/20/24 History
tablet
plecanatide 3 mg tablet (Trulance) 3 mg PO DAILY 12/20/24 12/20/24 History
desvenlafaxine succinate 50 mg 50 mg PO DAILY 12/21/24 12/21/24 History
tablet,extended release 24 hr
lamotrigine 25 mg tablet 50 mg PO DAILY 12/21/24 12/21/24 History
Review of Systems
-
History Source: Patient
A 12 point Review of Systems was completed except as noted: Yes
Physical Exam
Vital Signs
Vital Signs
Temp Pulse Resp BP Pulse Ox
97.7 F 90 16 124/76 97
12/21/24 14:29 12/21/24 14:29 12/21/24 14:29 12/21/24 14:29 12/21/24 09:18
Lab / Testing Results
Laboratory Results
12/20/24 17:38
12/20/24 17:38
Physical Exam
General: Patient is well-appearing, sitting upright in bed no acute distress
Abdomen: Soft abdomen with tenderness along the right lower quadrant, no rebound tenderness, no guarding
Assessment / Plan
-
Assessment and plan:
23-year-old woman with a history of endometriosis, ovarian cysts and IBS�constipation is currently admitted to the hospital with right lower quadrant pain. I suspect that her pain is secondary to either endometriosis or underlying IBS or related to
her ovarian cysts. However I do not suspect that the patient has ovarian torsion due to her benign abdominal exam and ultrasound that demonstrated normal flow to the ovaries.
Plan:
At this time I do not recommend surgical intervention as the patient does not have an acute surgical abdomen.
If symptoms do not improve then consider diagnostic laparoscopy with potential ovarian cystectomy
Recommend repeat ultrasound in 6 to 8 weeks
Recommend medical management with her gynecology team
--- NOTE | 2024-12-21 16:18 | PTCARENOTE ---
OOB to BR. voided. C/O nausea and increased pain when moving.
[2024-12-21 16:33] VITALS: BP 119/83
--- NOTE | 2024-12-21 17:20 | W.PN.GYN ---
Today's Communication / Plan
-
- D/C home with pain control
- Has follow up with Dr. Doyle in the office tomorrow
- Repeat US in 6-8 weeks
Physician Note
-
S: Patient seen and examined. She says her pain is okay when she is not moving, but it gets worse with movement. She will have sharp, shooting pain mostly on the right side. She says this is different than her endometriosis pain and she is concerned
it is the cyst. She has been taking Toradol with helps some with the pain. She also got 2 doses of Dilaudid. She was NPO after midnight pending consult with Dr. Rich so she has not had anything to eat today.
O:
BP 119/83, VSS
General: resting in bed
Cardio: regular
Pulm: no increased work of breathing
Abd: soft, mild diffuse tenderness to palpation, no rebound rigidity or guarding
A/P: 23yo G0 with right ovarian cyst, endometriosis and abdominal pain
- Consult w/ Dr. Rich reviewed- appreciate recommendations
- Long discussion had with patient and her mother in regards to plan of care. Since cyst is 3cm with no evidence of torsion on 2 ultrasounds and she does not have an acute abdomen, do not recommend surgical intervention at this time. Continue with
pain control. Pain is likely related to endometriosis and discussed possibility of starting on [place], which patient agrees to. She has an appointment with Dr. Doyle in the office tomorrow afternoon. Aware there might be insurance issues with
Orlissa and will probably need prior authorization. This process can be started in the office tomorrow. If there are samples available, pt will be able to get them tomorrow. She is aware that it will take time for this to take effect. In regards to
the ovarian cyst, recommend follow up in 6-8 weeks with repeat ultrasound
- Discussed pain control with scheduled ibuprofen and Tylenol. She already has a prescription for ibuprofen 600mg. Recommended alternating Tylenol and ibuprofen every 3 hours. Tramadol sent to pharmacy for breakthrough pain. She has a prescription
for Zofran that is only helping sometimes. Phenergan sent to pharmacy for nausea.
- Patient stable for DC home. Discharge instructions and strict return precautions discussed and all questions answered
30 minutes spent with patient, reviewing the chart and documenting
--- NOTE | 2024-12-21 18:33 | PTCARENOTE ---
Discharge to home. Has good understanding of discharge instructions and follow up care with providers.
== END 2024-12-21 20:21 | disposition home or self-care (01) ==
LOC: LDRP 23:58
PROVIDERS: ADMITTING PHYSICIAN Obstetrics & Gynecology; CONSULT PHYSICIAN Obstetrics & Gynecology; EMERGENCY PHYSICIAN Emergency Medicine; FAMILY PHYSICIAN Family Medicine; REFERRING PHYSICIAN Obstetrics & Gynecology
DX: R10.31 Right lower quadrant pain (principal); N83.201 Unspecified ovarian cyst, right side; F32.A Depression, unspecified; F41.9 Anxiety disorder, unspecified; F42.9 Obsessive-compulsive disorder, unspecified; Z79.899 Other long term (current) drug therapy; Z80.3 Family history of malignant neoplasm of breast; Z88.0 Allergy status to penicillin; Z97.5 Presence of (intrauterine) contraceptive device; N80.351 Endometriosis of the right pelvic sidewall, unspecified depth; N80.3C2 Endometriosis of the left uterosacral ligament, unspecified depth
CPT/HCPCS: 76705; 76856; 80053; 81003; 81015; 83690; 84703; 85025; 96361; 96374; 96375; 99285

== ENCOUNTER → 2025-05-10 12:48 | Outpatient (REF) | payer BC, SELFPAY | LOC: RAD 12:48 | PROVIDERS: ATTENDING PHYSICIAN Nurse Practitioner; FAMILY PHYSICIAN Family Medicine | DX: R10.32 Left lower quadrant pain (principal) | CPT/HCPCS: 74177; Q9967 ==

== ENCOUNTER → 2025-05-26 06:48 | Outpatient (REF) | payer BC, SELFPAY | LOC: RAD 06:48 | PROVIDERS: ATTENDING PHYSICIAN Internal Medicine; FAMILY PHYSICIAN Family Medicine | DX: K59.02 Outlet dysfunction constipation (principal); M62.89 Other specified disorders of muscle | CPT/HCPCS: 74270 ==

== ENCOUNTER → 2025-06-22 11:12 | Outpatient (REF) | payer BC, SELFPAY | LOC: RAD 11:12 | PROVIDERS: ATTENDING PHYSICIAN Internal Medicine | DX: K59.00 Constipation, unspecified (principal) | CPT/HCPCS: 74019 ==